=== PATIENT | female | born 2000 | race Caucasian/White ===

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

== ENCOUNTER 2021-07-07 10:55 | Emergency (ER) | payer BC ==
[2021-07-07 11:04] VITALS: RESP 18
[2021-07-07] MEDS ORDERED: KETOROLAC 15 MG/ML 1 ML VIAL IM STA (11:21)
[2021-07-07] MEDS ORDERED: MORPHINE SULFATE 4 MG/ML SYRINGE IVP STA (12:12)
--- NOTE | 2021-07-07 12:34 | XR ---
Right shoulder, right humerus HISTORY: Trauma and pain 3 views of the right shoulder, 3 views of the right humerus submitted There is a mid diaphyseal oblique displaced diaphyseal fracture of the right humerus. Right shoulder shows no fracture or dislocation. IMPRESSION: Right humeral fracture.
--- NOTE | 2021-07-07 12:34 | XR ---
Left wrist HISTORY: Trauma and pain 4 views of left wrist Bone mineralization, joint spaces and alignment are maintained. Flexion deformity of the fifth digit is noted incidentally. IMPRESSION: No fracture or dislocation within the left wrist. Correlate for flexion deformity fifth d igit left hand.
--- NOTE | 2021-07-07 12:37 | ED ---
Upper Extremity HPI - General Chief Complaint: Extremity Injury, Upper Stated Complaint: Rt Arm & Head Injury Time Seen by Provider: 07/07/21 11:12 Source: patient Mode of arrival: ambulatory Limitations: no limitations - History of Present Illness Initial Comments: Patient is a 20-year-old female presenting for evaluation of right arm pain. Around 5 AM she was sleding when the sled lost control and she fell onto the right arm. Pain feels like a tightness and she is unable to abduct the arm. Pain is constant. She has full range of motion and sensation of the wrist and fingers. States that she may have hit her head while rolling down the hill. Denies headache, nausea, vomiting, confusion, amnesia, vision changes, double vision, gait changes, dizziness, agitation. - Related Data Allergies Allergy/AdvReac Type Severity Reaction Status Date / Time No Known Allergies Allergy Verified 07/07/21 11:04 Review of Systems ROS Statement: Those systems with pertinent positive or pertinent negative responses have been documented in the HPI. ROS Other: All systems not noted in ROS Statement are negative. Past Medical History Past Medical History: No Reported History History of Any Multi-Drug Resistant Organisms: None Reported Past Surgical History: Tonsillectomy Past Psychological History: No Psychological Hx Reported Smoking Status: Never smoker Past Alcohol Use History: Occasional Past Drug Use History: None Reported General Exam Limitations: no limitations General appearance: alert, in no apparent distress Head exam: Present: atraumatic, normocephalic, normal inspection Eye exam: Present: normal appearance, PERRL, EOMI. Absent: scleral icterus, conjunctival injection, periorbital swelling Neck exam: Present: normal inspection Right Upper Arm exam: Present: tenderness, swelling, ecchymosis. Absent: full ROM Forearm Wrist exam: Present: normal inspection, full ROM. Absent: tenderness, swelling Hand Wrist exam: Present: normal inspection, full ROM. Absent: tenderness, swelling Neurosensory exam: Present: radial nerve intact Vascular: Present: normal capillary refill, radial pulse (normal) Neurological exam: Present: alert, oriented X3, CN II-XII intact Expanded Patient oriented to: Present: person, place, time Speech: Present: fluid speech Eye Response: (4) open spontaneously Motor Response: (6) obeys commands Verbal Response: (5) oriented Jude Total: 15 Psychiatric exam: Present: normal affect, normal mood Skin exam: Present: warm, dry, intact, normal color. Absent: rash Course Vital Signs 07/07/21 11:00 Temperature 98 F Pulse Rate 113 H Respiratory 18 Rate Blood Pressure 138/88 O2 Sat by Pulse 100 Oximetry - Reevaluation(s) Reevaluation #1: Applied coaptation splint, this was after pt had received morphine which she reported improved the pain (from an 8/10 to a 3/10) 07/07/21 13:30 Procedures - Orthopedic Splinting/Casting Injury #1 Side: right Upper Extremity Injury Location: long arm Upper Extremity Immobilizer: synthetic pre-padded splint (applied coaptation splint) Other Orthopedic Equipment: other (sling) Medical Decision Making - Medical Decision Making Patient is a 20-year-old female presenting with chief complaint of right arm pain. She fell onto the arm when she lost control of a sled. Pain is located in the center of the forearm. She is unable to abduct the arm. Neurovascularly intact. She is unsure if she hit her head. GCS is 15, no neuro deficits on exam, does not meet [place] CT rules for head CT. X-ray shows fracture of humeral shaft. Spoke with Dr. Escobar who advised coaptation splint and follow-up with Dr. Cross. Patient responded well to IM Toradol and IM morphine for pain. The plan coaptation splint and provided with sling. Follow-up with orthopedics tomorrow. Alternate acetaminophen and ibuprofen every 3 hours for pain. Do not exceed more than 3500 mg of acetaminophen and 3200 mg of ibuprofen. Report back here with worsening symptoms or new onset alarming symptoms such as loss of sensation, increasing pressure, pallor of the extremity, increasing coldness of extremity, loss of movement. Dr. Schrader was the attending. Disposition Clinical Impression: Humeral shaft fracture Disposition: HOME SELF-CARE Condition: Good Instructions (If sedation given, give patient instructions): Arm Fracture in Adults (ED) Additional Instructions: Follow-up with orthopedics tomorrow. Remain in sling/splint. Alternate ibuprofen and tylenol every 3 hours as needed for pain control. Do not exceed 3500mg of tylenol or 3200mg ibuprofen. Report back to ER if symptoms worsen or loss of sensation in extremity, increased pain, increased swelling, redness, coldness of extremity. Is patient prescribed a controlled substance at d/c from ED?: No Referrals: Jamila Corcoran DO [Primary Care Provider] - 1-2 days Marti Cross DO [Doctor of Osteopathic Medicine] - 1-2 days Time of Disposition: 13:38
[2021-07-07] MEDS ORDERED: MORPHINE SULFATE 4 MG/ML SYRINGE IM STA (12:51)
[2021-07-07 15:08] VITALS: BP 137/85; PULSE 95; TEMP 97.8
== END 2021-07-07 14:10 | disposition home or self-care (01) ==
LOC: EC 10:55
DX: S42.301A Unspecified fracture of shaft of humerus, right arm, initial encounter for closed fracture (principal); W19.XXXA Unspecified fall, initial encounter
CPT/HCPCS: 99283; 96372; 73030; 73060; 73110; 29105; J2270; J1885

== ENCOUNTER 2023-04-06 05:41 | Emergency (ER) | payer BC, OTHER ==
[2023-04-06 05:57] VITALS: BP 149/109; PULSE 98; RESP 18; TEMP 98.3
--- NOTE | 2023-04-06 06:19 | ED ---
Lower Extremity Injury HPI - General Chief Complaint: Extremity Injury, Lower Stated Complaint: fall-rt foot pain Time Seen by Provider: 04/06/23 06:17 Source: patient, RN notes reviewed Mode of arrival: wheelchair Limitations: no limitations - History of Present Illness Initial Comments: This a 22-year-old female presents emergency Department chief complaint of right foot pain. Patient states she stepped on uneven surface states that rolled the lateral portion complaint lateral right foot pain. Denies ankle pain no pain proximal to her right foot. Paresthesias. - Related Data Allergies Allergy/AdvReac Type Severity Reaction Status Date / Time No Known Allergies Allergy Verified 04/06/23 05:54 Review of Systems ROS Statement: Those systems with pertinent positive or pertinent negative responses have been documented in the HPI. ROS Other: All systems not noted in ROS Statement are negative. Past Medical History Past Medical History: No Reported History History of Any Multi-Drug Resistant Organisms: None Reported Past Surgical History: Tonsillectomy Past Psychological History: No Psychological Hx Reported Smoking Status: Never smoker Past Alcohol Use History: Occasional Past Drug Use History: None Reported General Exam Limitations: no limitations General appearance: alert, in no apparent distress Head exam: Present: atraumatic, normocephalic, normal inspection Neck exam: Present: normal inspection. Absent: tenderness, meningismus, lymphadenopathy Respiratory exam: Present: normal lung sounds bilaterally. Absent: respiratory distress, wheezes, rales, rhonchi, stridor Cardiovascular Exam: Present: regular rate, normal rhythm, normal heart sounds. Absent: systolic murmur, diastolic murmur, rubs, gallop, clicks Extremities exam: Present: other (Right foot lateral portion mild tenderness, no significant right ankle tenderness) Course Vital Signs 04/06/23 05:54 Temperature 98.3 F Pulse Rate 98 Respiratory 18 Rate Blood Pressure 149/109 O2 Sat by Pulse 98 Oximetry Medical Decision Making - Medical Decision Making Was pt. sent in by a medical professional or institution (, PA, K[employer]IFE [employer]TER [employer]INE, urgent care, hospital, or half-way...) When possible be specific @ -No Did you speak to anyone other than the patient for history (EMS, parent, family, police, friend...)? What history was obtained from this source @ -No Did you review nursing and triage notes (agree or disagree)? Why? @ -I reviewed and agree with nursing and triage notes Were old charts reviewed (outside hosp., previous admission, EMS record, old EKG, old radiological studies, urgent care reports/EKG's, half-way records)? Report findings @ -No old charts were reviewed Differential Diagnosis (chest pain, altered mental status, abdominal pain women, abdominal pain men, vaginal bleeding, weakness, fever, dyspnea, syncope, headache, dizziness, GI bleed, back pain, seizure, CVA, palpatations, mental health, musculoskeletal)? @ -[Right foot sprain, right foot fracture EKG interpreted by me (3pts min.). @ -None X-rays interpreted by me (1pt min.). @ -X-ray foot shows no acute fracture, x-ray right ankle no acute fracture CT interpreted by me (1pt min.). @ -None done U/S interpreted by me (1pt. min.). @ -None done What testing was considered but not performed or refused? (CT, X-rays, U/S, labs)? Why? @ -None What meds were considered but not given or refused? Why? @ -None Did you discuss the management of the patient with other professionals (professionals i.e. , PA, K[employer]IFE [employer]ACHINE, lab, RT, psych nurse, social professionals, nursing education specialist, teacher, armored vehicle officer, briefcase sewer)? Give summary @ -No Was smoking cessation discussed for >3mins.? @ -No Was critical care preformed (if so, how long)? @ -No Were there social determinants of health that impacted care today? How? (Homelessness, low income, unemployed, alcoholism, drug addiction, transportation, low edu. Level, literacy, decrease access to med. care, fci, rehab)? @ -No Was there de-escalation of care discussed even if they declined (Discuss DNR or withdrawal of care, Hospice)? DNR status @ -No What co-morbidities impacted this encounter? (DM, HTN, Smoking, COPD, CAD, Cancer, CVA, ARF, Chemo, Hep., AIDS, mental health diagnosis, sleep apnea, morbid obesity)? @ -None Was patient admitted / discharged? Hospital course, mention meds given and route, prescriptions, significant lab abnormalities, going to OR and other pertinent info. @ -[Discharge patient has negative imaging patient has right foot sprain. Patient discharged in stable condition return parameters were discussed. Undiagnosed new problem with uncertain prognosis? @ -No Drug Therapy requiring intensive monitoring for toxicity (Heparin, Nitro, Insulin, Cardizem)? @ -No Were any procedures done? @ -No Diagnosis/symptom? @ -Right foot sprain Acute, or Chronic, or Acute on Chronic? @ -Acute Uncomplicated (without systemic symptoms) or Complicated (systemic symptoms)? @ -Uncomplicated Side effects of treatment? @ -No Exacerbation, Progression, or Severe Exacerbation? @ -No Poses a threat to life or bodily function? How? (Chest pain, [place], [place], pneumonia, PE, COPD, DKA, ARF, appy, cholecystitis, CVA, Diverticulitis, Homicidal, Suicidal, threat to staff... and all critical care pts) @ -No Disposition Clinical Impression: Right foot sprain Disposition: HOME SELF-CARE Condition: Stable Instructions (If sedation given, give patient instructions): Foot Sprain (ED) Additional Instructions: Please return to the Emergency Department if symptoms worsen or any other concerns. Is patient prescribed a controlled substance at d/c from ED?: No Referrals: Temo Bennett MD [Primary Care Provider] - 1-2 days Burt Christianson MD [STAFF PHYSICIAN] - 1-2 days Time of Disposition: 06:51
--- NOTE | 2023-04-06 06:31 | XR ---
EXAM: XR Right Foot Complete, 3 or More Views CLINICAL HISTORY: ITS.REASON XR Reason: FALL TECHNIQUE: Frontal, lateral and oblique views of the right foot. COMPARISON: No relevant prior studies available. FINDINGS: Bones/joints: Unremarkable. No acute fracture. No dislocation. Soft tissues: Unremarkable. No radiopaque foreign body. IMPRESSION: Normal right foot x-rays.
--- NOTE | 2023-04-06 06:31 | XR ---
EXAM: XR Right Ankle Complete, 3 or More Views CLINICAL HISTORY: ITS.REASON XR Reason: fall pain and swelling TECHNIQUE: Frontal, lateral and oblique views of the right ankle. COMPARISON: No relevant prior studies available. FINDINGS: Bones/joints: Unremarkable. No acute fracture. No dislocation. Soft tissues: Unremarkable. IMPRESSION: Normal right ankle x-rays.
== END 2023-04-06 12:10 | disposition home or self-care (01) ==
LOC: SUPCPDRO 05:41 → EC 05:41
DX: S93.601A Unspecified sprain of right foot, initial encounter (principal); X50.0XXA Overexertion from strenuous movement or load, initial encounter
CPT/HCPCS: 99283